=== PATIENT | female | born 1995 | race Caucasian/White ===

== ENCOUNTER → 2017-05-15 | Outpatient (CLI) | payer OTHER, SELFPAY | LOC: M.RAD 14:02 → EDBD 14:02 | DX: J40 Bronchitis, not specified as acute or chronic (principal) ==

== ENCOUNTER → 2018-10-30 | Outpatient (CLI) | payer OTHER ==
[2018-10-30 08:35] VITALS: BP 125/81
[2018-10-30 08:45] VITALS: BP 132/90
--- NOTE | 2018-10-30 14:42 | NUR ---
PATIENT HERE FOR A TILT TABLE AND THE PROCEDURE COULD NOT BE PERFORMED. WE DID A MODIFIED TILT AND BASICALLY OBTAINED ORTHOSTATIC VITAL SIGNS. DR. MANN CAME TO SEE PATIENT AND WANTED US TO DO THE SAME THING AFTER GIVING 500ML FLUID. REDID THE VITAL SIGNS AND PATIENT DID NOT GET DIZZY OR LIGHTHEADED. PATIENT COULD STAND UP WITHOUT ANY DIFFICULTY. PATIENT WAS TAKEN OUT IN A WHEELCHAIR AFTER IV WAS TAKEN OUT. VITAL SIGNS STABLE AT TIME OF DISCHARGE.
--- NOTE | 2018-10-31 19:52 | CARD ---
[address] [address] CARDIAC CATH REPORT Name: JARROD LUCAS Room: [facility]#: [id number] Admission: 10/30/18 Attend Phys: Garcia Reese MD Discharge: Date of : 89 Report #: [id number] THIS REPORT FOR: //name// CC: Garcia Grande DO PROCEDURE: Tilt table test. INDICATION: Syncope. DESCRIPTION OF PROCEDURE: After informed consent was obtained, the patient was brought to the cardiac holding area. An IV was inserted. The patient promptly passed out. The patient was then recovered for a few minutes. After regaining consciousness, she was stood up and immediately complained of feeling lightheaded and dizzy. She promptly passed out again. At this point, it was reported that her heart rate fell from 130 beats per minute to 40 beats per minute. After which time, she remains somewhat bradycardic for a few minutes. The patient then received a 500 bolus of normal saline. At this point, the patient was able to stand without significant symptoms. Orthostatic blood pressures checked at this time revealed a blood pressure of 125/81 mmHg with a heart rate of 113 while lying. After sitting, the patient's blood pressure was 132/90 mmHg with a heart rate of 130 beats per minute. After standing, the patient's blood pressure was 135/84 mmHg with a heart rate of 122 beats per minute. Formal tilt table testing was not performed. The patient's orthostatic blood pressures were checked on 2 separate occasions, once prior to and once after a 500 mL bolus of normal saline. The patient continued to have tachycardia after a bolus with 500 mL normal saline, although her blood pressure did remain stable. IMPRESSION: The patient exhibits some features of neurocardiogenic syncope, initially especially when under-hydrated. The patient exhibited more inappropriate sinus tachycardia post-hydration with the relief of her symptoms of near syncope and syncope. RECOMMENDATION: The patient remained adequately hydrated. The patient was given lifestyle modifications for neurocardiogenic syncope, paperwork to follow. The patient will follow up in the Cardiology office. FINAL IMPRESSION: The patient does have some [place] [address] CARDIAC CATH REPORT Name: JARROD LUCAS Room: [facility]#: [id number] Admission: 10/30/18 Attend Phys: Garcia Reese MD Discharge: Date of : 89 Report #: [id number] syncope, especially when under-hydrated. She also appears to have inappropriate sinus tachycardia and may benefit from low-dose beta blockade. <ELECTRONICALLY SIGNED> By: Garcia Reese MD, [facility] 10/31/18 [id number] Reese MD, FACC /nt
== END | disposition home or self-care (01) ==
LOC: M.CL 08:14
DX: R55 Syncope and collapse (principal)

== ENCOUNTER → 2020-05-31 | Outpatient (CLI) | payer OTHER ==
--- NOTE | ~2020-05-31 | EEG ---
[address] [address] EEG STUDY REPORT Name: JARROD LUCAS Room: [facility]#: [id number] Admission: 05/31/20 Attend Phys: Herman Amaro MD Discharge: Date of : 89 Report #: [id number] THIS REPORT FOR: cc: Bahman Grande Vincent R. DO ~ Herman Amaro MD DATE OF SERVICE: 05/31/2020 This patient is being evaluated for an episode of syncope. EEG is being done to evaluate the patient for the possibility of seizure disorder. Background activity in this patient's EEG is about 10 Hz and 30 microvolt. The patient became drowsy that is associated with bilateral slowing and vertex sharp waves. Photic stimulation is unremarkable. Throughout the record, no active epileptiform activity was noticed. IMPRESSION: This patient's EEG is unremarkable and does not demonstrate any clear-cut epileptiform activity. Thank you very much for this referral. By: [id number] Amaro MD /nt
[2020-05-31 12:53] LABS: ABSOLUTE BASOPHILS 0.1 thou/uL (0.0-0.2); ABSOLUTE EOSINOPHILS 0.5 thou/uL (0.0-0.7); ABSOLUTE LYMPHOCYTES 3.4 thou/uL (0.8-5.3); ABSOLUTE MONOCYTES 0.8 thou/uL (0.0-1.2); BASOPHILS 0.8 %; HEMATOCRIT 40.1 % (37.0-47.0); HEMOGLOBIN 13.4 gm/dL (12.0-15.0); LYMPHOCYTES 38.8 %; MCH 30.9 pg (26.0-34.0); MCHC 33.4 g/dL (28.0-37.0); MCV 92.5 fL (80.0-100.0); MPV 8.4 fl. (7.2-11.1); NUCLEATED RBCS 0 /100WBC; PLATELET COUNT* 250 thou/uL (150-400); POLYS 45.4 %; RBC 4.33 mil/uL (4.20-5.00); RDW-CV 12.2 % (10.5-14.5); WBC 8.9 thou/uL (4.0-11.0)
[2020-05-31 13:05] LABS: ALBUMIN 4.2 g/dL (3.4-5.0); CALCIUM 9.4 mg/dL (8.5-10.1); CREATININE 0.7 mg/dL (0.6-1.3); POTASSIUM 4.2 mmol/L (3.5-5.1); TOTAL BILIRUBIN 0.6 mg/dL (<0.1-1.0); TOTAL PROTEIN 7.6 g/dL (6.4-8.2)
[2020-05-31 13:59] LABS: ESR (SEDRATE) 4 mm/hr (0-20)
== END ==
LOC: M.LAB 12:07 → M.MRI 13:30
PROVIDERS: ATTEND Psychiatry & Neurology Neuromuscular Medicine
DX: R41.3 Other amnesia (principal); R55 Syncope and collapse; J32.0 Chronic maxillary sinusitis